=== PATIENT | female | born 1975 | race Caucasian/White ===

== ENCOUNTER 2016-12-25 07:20 | Day surgery (SDC) | payer BC ==
[~2016-12-25] VITALS: Ht 162.6 cm; Wt 89.7 kg
[2016-12-25] VITALS (13 sets, daily range): BP systolic 95–128; BP diastolic 65–79; PULSE 66–112; RESP 12–19; Ht 162.6 cm; Wt 89.7 kg
[~2016-12-25 07:20] MED LIST: ATROPINE 1 MG/10 ML SYRINGE IV PRN; CEFAZOLIN 1 GM INJ ONE; DIPHENHYDRAMINE 50 MG INJ IV PRN; EPHEDrine SULFATE 50 MG/5 ML SYG IV PRN; FENTAnyl 50 MCG/ML VIAL IV PRN; HYDROmorphONE (0.2 MG/ML) 10ML SYG IV PRN; LABETALOL HCL 20MG INJ IV PRN; MEPERIDINE 25 MG INJ IV PRN; MIDAZOLAM 1 MG/ML 2 ML INJ IV PRN; ONDANSETRON 4 MG INJ IV PRN; OXYCODONE/ACETAMINOPHEN (5/325) TAB PO PRN; hydrALAzine 20 MG INJ IV PRN; morphine (1 MG/ML) 10ML SYRINGE IV PRN
[2016-12-25 09:04] LABS: BASOPHIL # 0.1 10^3/ul (0.0-0.1); BASOPHILS % 1.4 % (0.0-2.0); EOSINOPHILS # 0.2 10^3/ul (0.0-0.5); EOSINOPHILS % 2.6 % (0.0-7.0); HEMATOCRIT 35.3 % (37.0-47.0); HEMOGLOBIN 12.3 g/dl (12.0-16.0); LYMPHOCYTES % 29.7 % (15.0-51.0); MEAN CORPUSCULAR HGB CONC 34.8 g/dl (32.0-37.0); MEAN CORPUSCULAR VOLUME 94.6 fl (82.0-101.0); MONOCYTE # 0.4 10^3/ul (0.3-0.9); MONOCYTES % 6.3 % (0.0-11.0); NEUTROPHILS % 59.8 % (39.0-77.0); PLATELET COUNT 250 10^3/UL (140-415); RED BLOOD COUNT 3.73 10^6/ul (4.20-5.40); RED CELL DISTRIBUTION WIDTH 12.7 % (11.5-14.5); WHITE BLOOD COUNT 6.6 10^3/ul (4.8-10.8)
[2016-12-25] MEDS ORDERED: ROCURONIUM 50 MG INJ ONE (09:08)
[2016-12-25] MEDS ORDERED: FENTAnyl 50 MCG/ML VIAL ONE ×2 (09:08→14:03)
[2016-12-25] MEDS ORDERED: GLYCOPYRROLATE 0.4 MG INJ ONE (09:08)
[2016-12-25] MEDS ORDERED: PROPOFOL 20 ML ONE (09:08)
[2016-12-25] MEDS ORDERED: MIDAZOLAM 1 MG/ML 2 ML INJ ONE (09:08)
[2016-12-25] MEDS ORDERED: LIDOCAINE 2% (SDV) 5 ML INJ ONE (09:08)
[2016-12-25] MEDS ORDERED: NEOSTIGMINE 3 MG/3 ML SYRINGE ONE (09:08)
[2016-12-25] MEDS ORDERED: DEXAMETHASONE 4 MG/ML 1 ML INJ ONE (09:12)
[2016-12-25] MEDS ORDERED: ONDANSETRON 4 MG INJ ONE (09:12)
[2016-12-25] MEDS ORDERED: ROPIVACAINE 0.5 % 30 ML VIAL ONE ×2 (09:12→13:15)
[2016-12-25 09:13] LABS: ALBUMIN 3.9 g/dl (3.3-4.9); ALBUMIN/GLOBULIN RATIO 1.14; BILIRUBIN,INDIRECT 0.7 mg/dl (0-1.1); BILIRUBIN,TOTAL 0.7 mg/dl (0.2-1.3); TOTAL PROTEIN 7.3 g/dl (6.1-8.1)
[2016-12-25 09:20] LABS: CALCIUM 9.2 mg/dl (8.4-10.2); CREATININE 0.57 mg/dl (0.44-1.00); POTASSIUM 4.1 mmol/L (3.5-5.1)
[2016-12-25 09:27] LABS: INR 0.94; PROTIME 12.6 Sec (12.2-14.2)
[2016-12-25] MEDS ORDERED: SUGAMMADEX SODIUM 200 MG/2 ML VIAL IV ONE (10:44)
--- NOTE | 2016-12-25 10:47 | HPN ---
Date/Time of Note Date/Time of Note DATE: 12/25/16 TIME: 10:47 Interval H&P Admission Note Pt. seen H&P reviewed: No system changes REBECCA BENITEZ MD Dec 25, 2016 10:47
[2016-12-25] MEDS ORDERED: OXYCODONE/ACETAMINOPHEN (5/325) TAB PO PRN (11:00)
[2016-12-25] MEDS ORDERED: morphine 2 MG INJ IV PRN (11:00)
[2016-12-25] MEDS ORDERED: LABETALOL HCL 20MG INJ ONE (11:06)
[2016-12-25] MEDS ORDERED: hydrALAzine 20 MG INJ ONE (11:48)
[2016-12-25] MEDS ORDERED: KETOROLAC 30 MG INJ IV ONE (13:00)
[2016-12-25] MEDS ORDERED: POLYMYXIN/BACITRACIN 1L IRRIG ONE (13:26)
--- NOTE | 2016-12-25 13:33 | SIPON ---
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
--- NOTE | 2016-12-25 13:35 | OPR ---
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 Operation/Procedure Performed Left knee arthroscopy with ACL reconstruction with tibialis Ant Allograft (size 9.5 femoral and tibial tunnels) Left knee arthroscopy with partial medial meniscectomy Left knee arthroscopy with loose body removal Left knee arthroscopy with chondroplasty of the medial and patellofemoral compartments Surgeon Rebecca Benitez MD Corrosion Technician Garrison Ross MD Anesthesia Type: general, other (fascia iliacus) Anesthesiologist: NICOL KOCH MD Tourniquet Time: 73 min at 250 mm Hg Estimated Blood Loss: minimal Transfusion none Specimen none Grafts/Implants Mitek adjustable rigid loop femoral fixation, 8-10 x25 intrafix with sheath Arthrex 4.75 swivelock anchor Tibialis Anterior Allograft Tubes/Drains none Complications none Pt Condition Post Procedure: stable Disposition: PACU Procedure Description RISK NOTE: Patient was explained the risks and benefits of the surgery in the patients [place] language, including not limited to infection, bleeding, loss of limb, loss of life, need for future surgery, risk of anesthesia, risk of injury to the blood vessels and nerves, ligaments or tendons, and risk of deep vein thrombosis. Patient understood these risks and wished to proceed with the surgery. AERONAUTICAL PROJECT ENGINEER SURGEON: During the operation, the services of a physician administrative support assistant were medically indicated and necessary to provide exposure of the operative site for the surgical procedure and to maintain the limb in a proper position to carry out the operation safely and efficiently. Without the qualified social science research assistant being present, it would have extended the operative procedure and made the procedure technically more difficult to perform. INDICATIONS: The patient is a 41-year-old female with a prolonged history of left knee giving way after twisting injury. She has had continued episodes of instability. The patient has restored their range of motion and is now brought to the operating room for ACL reconstruction, possible partial medial and lateral meniscectomy versus medial and lateral meniscal repair, chondroplasty and debridement. The risks, benefits, and alternatives of surgery were discussed with the patient. The risks included but were not limited to infection, bleeding, damage to vessels and nerves, loss of motion, continued pain, re-tear of the meniscus, deep venous thrombosis, and complications due to anesthesia including nerve injury, myocardial infarction, stroke, , etc. The patient stated understanding of the nature of the surgical procedure and gave written and verbal consent to proceed. PROCEDURE: The patient was brought to the operating room and placed supine on the operating room table. General anesthesia was induced and a fascia iliacus block was placed. The left lower extremity was examined under anesthesia. Range of motion was 0 degrees of extension to 135 degrees of flexion. There was no varus or valgus or posterolateral instability. She had no instability to varus or valgus stress at 0 or 30 degrees. She had a 2+ Jorge L and drawer with a positive pivot shift The left lower extremity was then prepped and draped in the usual fashion. A tourniquet was placed proximally on the thigh over a bias stockinette. A standard anterolateral parapatellar stab wound was created. The knee joint was entered with a blunt-tipped obturator, followed by the 30-degree video arthroscope. An anteromedial portal was established under arthroscopic control. A routine arthroscopic survey was performed. The suprapatellar pouch was unremarkable. The undersurface of the patella was well-preserved. The patella appeared to track centrally within the trochlear groove. Trochlea had grade 2 chondromalacia. The medial and lateral gutters were inspected and there was no loose body seen. There was no hypertrophied plica. The popliteal hiatus was entered and was unremarkable. The lateral compartment was entered. The lateral femoral condyle exhibited no chondromalacia and the lateral tibial plateau showed no chondromalacia. There was no chondromalacia adjacent to the notch. There was no chondromalacia along the central aspect of the weight bearing lateral tibial plateau. The lateral meniscus was probed and found to be stable and firm on probing The intercondylar notch was visualized. The anterior cruciate ligament was torn from its femoral origin. There was an empty lateral wall. Posteromedially there was no loose body seen. The posterior cruciate ligament was visualized and appeared intact. The medial compartment was entered. The articular surfaces of the medial femoral condyle and medial tibial plateau were visualized. There was grade 3/4 chondromalacia noted on the medial femoral condyle, and grade 2./3 chondromalacia noted on the medial tibial plateau. The medial meniscus was torn at posterior horn in a oblique fashion. It was then trimmed with a meniscal biter and shaver to a firm stable rim that was probed and found to not displace. there was found to be multiple loose bodies in the medial compartment measuring a total of 1 cm that were removed Attention was turned to reconstruction of the anterior cruciate ligament. Following exsanguination with an Esmarch bandage the tourniquet was inflated to 250 mm of mercury. Using a motorized shaver a limited notchplasty was performed, exposing the lateral wall and roof of the notch, identifying the [id number] position. The stump of the anterior cruciate ligament was debrided. A Vector guide was placed intra-articularly between the tibial spines in line with the anterior horn of the lateral meniscus. A incision made over the proximal medial tibia and was deepened through the subcutaneous tissue with subperiosteal dissection achieved. Bleeding points were coagulated with the Bovie electrocautery. The anterior tibialis graft was taken to the back table, accommodating a 9.5 mm graft on the femoral side and 9.5 mm graft on the tibial side. Tibial drilling was then carried out first with a 6 mm followed by a 8 mm then 9.5 cylindrical reamer with the guide set at 55 degrees. Via an accessory medial portal, the femoral attachment site was identified and the Beath pin was drilled out the femoral cortex and skin with the knee in hyperflexion. The femoral tunnel was then created, with a spade tip guidewire, Depth-gauging confirmed a tunnel length of 30 mm. Then reaming proceeded, first with a 6 mm then an 8 mm the 9.5 drill to a depth of 23 mm. A adjustable rigid loop Mitek button was selected. The graft was inserted intra -articularly and the Mitek button was deployed. The graft was cycled for 20 cycles with 25 pounds of force to pre-load the graft. Tibial fixation was carried out using a [id number] in 10 degrees of flexion with a posterior drawer that was then backed up with an Arthrex Swivel Lock over the proximal medial tibia. At the completion of surgery the patient had a firm stable Jorge L. There was a negative pivot shift. The patient had a 0 firm Jorge L and a negative pivot shift. There was no evidence for any roof or lateral wall impingement. The tourniquet was deflated at 73 minutes. The knee was irrigated with two liters of lactated Ringer's solution. Excess fluid was drained. The tibial wounds were then copiously irrigated with bacitracin solution and closed in layers with #0, #2-0 and #3-0 Vicryl. The skin was reapproximated with #4-0 Monocryl. The knee was injected with 20 cc of 0.5% plain ropivacaine. A dry sterile dressing was applied, followed by a bulky bandage and SERGEI stocking with a cold therapy unit placed over the bulky bandage and SERGEI stocking, insuring no contact with the skin. A postoperative TROM brace was applied locked in full extension. The patient was awakened in the Operating Room and transported to the Recovery Room in satisfactory condition. The patient appeared to tolerate the procedure well. At the completion of surgery the patient had soft compartments, palpable pulses, and brisk capillary refill. There were no complications noted. REBECCA BENITEZ MD Dec 25, 2016 13:35
== END 2016-12-25 16:11 | disposition home or self-care (01) ==
LOC: SDS 07:20
PROVIDERS: ATTEND Orthopaedic Surgery
DX: M23.222 Derangement of posterior horn of medial meniscus due to old tear or injury, left knee (principal); S83.512D Sprain of anterior cruciate ligament of left knee, subsequent encounter; X58.XXXD Exposure to other specified factors, subsequent encounter; M94.262 Chondromalacia, left knee
CPT/HCPCS: 29881; 29888; 80053; 82306; 85025; 85610; 85730; C1713; C1762; J0360; J0690; J1100; J1170; J1885; J2250; J2405; J2795; J3010; Z7512; Z7610; J2710